=== PATIENT | female | born 1940 | race Caucasian/White ===

== ENCOUNTER 2021-03-25 05:48 | Day surgery (SDC) | payer MEDICARE, OTHER ==
[~2021-03-25] VITALS: Ht 163 cm; Wt 82.0 kg
[~2021-03-25 05:48] MED LIST: ASCORBIC ACID500 MG PO; ASPIRIN CHEWABL81 MG PO; ATENOLOL100 MG PO; CRESTOR5 MG PO; ELAVIL25 MG PO; ELIQUIS2.5 MG PO; GLUCOSAMINE CH1 EAC7 PO; MAXIMUM DAILY1 EAC1 PO; MELATONIN10 M2 PO; NAPROXEN500 MG PO; NORVASC2.5 MG PO; VITAMIN B-121000 MC2 PO; VITAMIN D35000 UNI1 PO; ZOFRAN4 MG PO
--- NOTE | 2021-03-25 11:22 | NUR ---
PER MATIAS GEORGE, ORTHO LIASION. PT. HAS A ROLLING WALKER. SHE REQUESTS [email or web address] FOR PT. [facility] [phone]. FAXED FACE SHEET AND H & P. ADVISED I WOULD FAX ORDER ON THURSDAY. FAX NUMBER IS [phone].
--- NOTE | 2021-03-25 15:43 | NUR ---
SPOKE WITH PT. SHE IS NOW GOING HOME TO HER SON'S HOME AT [address], [place], [place]. I CONTACTED IGLESIA RAINES AND ADVISED THAT THE PT IS GOING TO [facility]. THEY ARE FAXING THE INFORMATION TO [facility]. SPOKE WITH LAURA IN [facility]. SHE HAS BEEN ADVISED BY [facility] IN [place] TO BE EXPECTING THE INFORMATION.
--- NOTE | 2021-03-25 16:01 | NUR ---
PT. HAS A ROLLING WALKER AND SIGNED THE PT. CHOICE FORM.
[2021-03-26 06:53] LABS: BASOPHIL 0.1 % (0-2); EOSINOPHIL 0 % (0-7); HCT 29.8 % (37.0-47.0); HGB 9.5 g/dl (12.5-16.0); LYMPHOCYTE 8.1 % (15-48); MCHC 31.9 g/dL (32.0-36.0); MCV 97.4 fL (78.0-100.0); MONOCYTE 6.1 % (0-12); MPV 11.3 fL (6.0-9.5); NEUTROPHIL 85.2 % (41-80); NRBC 0; PLT 208 K/uL (150-400); RBC 3.06 M/uL (4.20-5.40); RDW 12.6 % (11.5-14.0); WBC 12.4 K/uL (4.0-10.5)
[2021-03-26 07:31] LABS: BUN/CREAT RATIO (CALC) 24.7 RATIO; CREATININE 0.73 mg/dL (0.51-0.95); POTASSIUM 4.6 mmol/L (3.5-5.1)
[2021-03-26] MEDS ORDERED: XARELTO10 MG PO (08:42)
[2021-03-26] MEDS ORDERED: OXYCODONE-ACET1 EAC1 PO ×2 (08:42→10:57)
[2021-03-26] MEDS ORDERED: FEOSOL325 MG PO (08:42)
[2021-03-26] MEDS ORDERED: ONDANSETRON4 MG/2 M2 PO (11:40)
== END 2021-03-26 16:26 | disposition home health service (06) ==
LOC: FAS 05:48 → FMS 05:48 → FOR 09:00 → FAS 09:00
PROVIDERS: Legal Medicine; Nurse Practitioner
DX: M17.12 Unilateral primary osteoarthritis, left knee (principal); M16.11 Unilateral primary osteoarthritis, right hip; I10 Essential (primary) hypertension; E78.5 Hyperlipidemia, unspecified; Z96.651 Presence of right artificial knee joint; Z79.82 Long term (current) use of aspirin
CPT/HCPCS: 36415; 73501; 76000; 80048; 85025; 86850; 86900; 86901; 94010; 94760; 94762; 97110; 97162; 97166; 97530-GP; 97535; C1776; J0171; J1040; J1100; J1170; J1885; J2270; J2405; J2704; J2795; J3010; J7120